=== PATIENT | female | born 1975 | race Caucasian/White ===

== ENCOUNTER 2021-05-06 10:47 | Day surgery (SDC) | payer OTHER ==
[~2021-05-06] VITALS: Ht 157.5 cm; Wt 79.4 kg
[~2021-05-06 10:47] MED LIST: APPLE CIDER VI300 MG PO; ELDERBERRY-VIT1 EACH PO; VITAMIN C1000 MG PO; VITAMIN D325 MC5 PO; XYZAL5 MG PO
[2021-05-06 12:53] VITALS: BP 116/61
[2021-05-06 16:48] VITALS: BP 116/61
--- NOTE | 2021-05-13 06:49 | O ---
[address] [address] OPERATIVE REPORT Name: BALTA SOTO Room #: DEP [facility]..#: [id number] Admission: 05/06/21 Attend Phys: Ben Otto MD Discharge: 05/06/21 Date of : 75 Report #: [id number] THIS REPORT FOR: cc: Fransisca Brito MD, Aimee B. MD McCabe,Ben Sullivan MD ~ DATE OF SERVICE: 05/06/2021 SERVICE: Orthopedics. FACILITY: [facility]. SURGEON: Ben Otto MD LOAN ANALYST: Nicole Dhaliwal NP INDICATIONS FOR LOAN ANALYST: Extremity positioning, suture management, arthroscope management, assistance with repair. PREOPERATIVE DIAGNOSES: 1. Left hip pain. 2. Left hip femoral acetabular impingement 3. Left hip labral tear. POSTOPERATIVE DIAGNOSES: 1. Left hip pain. 2. Left hip femoral acetabular impingement 3. Left hip labral tear. 4. Left hip mild chondromalacia. PROCEDURES: 1. Left hip arthroscopic labral repair. 2. Left hip arthroscopic subspine decompression. 3. Arthroscopic Cam osteochondroplasty. 4. Left hip arthroscopic lateral rim acetabuloplasty. COMPLICATIONS: None. DRAINS: None. SPECIMENS: None. ANESTHESIA: General with regional. FINDINGS: 1. Anterior labral tear with Megan CinchLock suture anchor x [address] for repair. [address] [address] OPERATIVE REPORT Name: BALTA SOTO Room #: DEP [facility]#: [id number] Admission: 05/06/21 Attend Phys: Ben Otto MD Discharge: 05/06/21 Date of : 75 Report #: [id number] 2. Lateral over-coverage treated with rim acetabuloplasty. 3. A small to moderate sized subspine impingement lesion, treated with subspine decompression requiring additional capsular dissection with the cautery and shaver and bony work. 4. 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 5. T-shaped capsulotomy closed with #2 Vicryl x 4. HISTORY: The patient is a female with an approximately 2-year history of progressive left hip pain that initially was able to be treated conservatively, but over the past year, during 2020, she developed worsening symptoms that have failed conservative measures including rest, activity modification, physical therapy, oral medicines, modalities and intra-articular injection. She had positive pain relief with intra-articular injection, but the improvement was not sustained and ultimately she wished to move forward with definitive surgical treatment. She had give way symptoms, pain that was affecting activities of daily living and was at times severe. She had imaging that was consistent with femoral acetabular impingement with Tonnis grade of 0. A well-maintained joint space. Small crossover sign on x-ray as well as a Cam deformity with an alpha angle approximately 60 degrees. She had a prominent anterior inferior iliac spine. It was responsible for extraarticular subspine impingement and she had an MRI which showed intact cartilage and an anterior labral tear. She was therefore indicated for surgical treatment after failing conservative measures. Risks, benefits, alternatives, and indication of surgery were discussed with her in detail. Risks include but not limited to pain, bleeding, infection, injuring nerves or blood vessels, persistent pain despite surgical intervention, failure of any repairs, progression of preexisting chondral injury, stiffness, need for further surgery as well as complications related to anesthesia. Despite the risks, she wished to proceed. PROCEDURE IN DETAIL: After left lower extremity was correctly identified in the preoperative holding area, the operative extremity, the patient was taken to the operating room where general anesthesia was induced without complication. She was padded appropriately. Prophylactic antibiotics were administered in appropriate time. Femoral head and neck junction was mapped out under intraoperative fluoroscopy to identify the extent of the Cam deformity and then the left hip was prepped and draped in standard sterile fashion. Timeout procedure performed. Traction was applied. Standard anterolateral viewing portal was established followed by anteromedial working portal. Diagnostic arthroscopy revealed the above findings. There was capsular erythema and synovitis which will be the indication for continuous passive motion machine usage postoperatively in order to reduce the risk of scarring and adhesions. Transverse capsulotomy was performed. There was noted to be a detached anterior labral tear such that [address] [address] OPERATIVE REPORT Name: BALTA SOTO Room #: DEP [facility]Angelo#: [id number] Admission: 05/06/21 Attend Phys: Ben Otto MD Discharge: 05/06/21 Date of : 75 Report #: [id number] despite having very good distraction, the labrum had a tendency to still travel self with the femoral head and was still contacting the femoral head, even in the distracted position requiring more meticulous establishment of the anteromedial portal, so as not to cause iatrogenic labral injury. After access had been achieved, transverse capsulotomy was performed and then the above surgical findings were noted. The capsule was reflected off the dorsal side of the labrum to allow access to the acetabular sided pathology. She had known over-coverage slightly anteriorly with more prominent laterally and so the capsular dissection and the bony work was performed. The bur was used to perform a rim resection working on the anterior acetabular rim all the way around laterally where the more significant bony resection was required. Fluoroscopy was used for assistance. I also used the bur to then resect excess bone in the subspine region, more proximally on the extraarticular side of the acetabulum such that the anterior inferior iliac spine was recessed in the standard subspine decompression fashion. After this was completed, we proceeded with acetabular labral repair. A total of 3 Megan CinchLock suture anchors were utilized with cerclage sutures, which provided good compression of the acetabular labrum against the rim. The first two were placed through the anteromedial portal and then we switched the working and viewing portal and a third anchor was placed through the lateral portal. After this was completed, the shaver was used to perform very limited chondroplasty. She was noted to have significant mobility of the rim cartilage at the chondrolabral junction, but the labral repair did do a nice job of stabilizing this on probing and so no further work was required at this point. Traction was let down. The hip was flexed up, attention was turned towards the peripheral compartment. The preoperative assessment conveyed that the Cam deformity did extend down the neck and so the transverse capsulotomy was extended down the neck in a T fashion to allow access to the entire Cam deformity to ensure that we had complete visualization and access to all of pathology. The bur was used to perform a Cam osteoplasty in the standard fashion. I removed the instruments, brought C-arm in and assessed the resection, I was happy with the appearance of the Cam resection at this point. We placed the instruments back in the hip, took final pictures and then lavaged the bony debris out of the hip. The T-shaped capsulotomy was then closed with a total of four #2 Vicryl sutures. Instruments were removed. Portal sites were closed. Sterile dressing was applied. The patient was awakened from anesthesia and taken to recovery room in stable condition. There were no complications. All counts were reported as correct. <ELECTRONICALLY SIGNED> By: Ben Otto MD 05/13/21 0649 Ben Otto MD /nt
== END 2021-05-06 17:25 | disposition home or self-care (01) ==
LOC: OR 10:47 → TBA 10:48 → OR 11:00
PROVIDERS: ATTEND Orthopaedic Surgery Sports Medicine
DX: M25.552 Pain in left hip (principal); M25.852 Other specified joint disorders, left hip; S73.192A Other sprain of left hip, initial encounter; Z98.890 Other specified postprocedural states; Z79.899 Other long term (current) drug therapy; Z20.822 Contact with and (suspected) exposure to COVID-19; Z88.2 Allergy status to sulfonamides; X58.XXXA Exposure to other specified factors, initial encounter; Y93.89 Activity, other specified; Y92.89 Other specified places as the place of occurrence of the external cause; Y99.8 Other external cause status
CPT/HCPCS: 50010; 50101; 50386; 51320; 51538; 52304; 52313; 56524; 56527; 57092; 57103; 58273; 58274; 58557; 58558; 58559; 58561; 58562; 58563; 58564; 58608; 58638; 62110; 62900; 70005